=== PATIENT | female | born 1995 | race Caucasian/White ===

== ENCOUNTER 2017-04-09 17:52 | Emergency (ER) | payer SELFPAY ==
--- NOTE | 2017-04-09 18:44 | NUR ---
PATIENT LEFT WITHOUT BEING SEEN BY DR. CARR. NO FURTHER CARE PROVIDED FOR PATIENT.
== END 2017-04-09 18:44 | disposition left against medical advice (07) ==
LOC: MED 17:52
DX: R10.9 Unspecified abdominal pain (principal); Z53.21 Procedure and treatment not carried out due to patient leaving prior to being seen by health care provider

== ENCOUNTER 2017-09-01 23:27 | Emergency (ER) | payer OTHER ==
[~2017-09-01] VITALS: Ht 152.4 cm; Wt 79.4 kg
[2017-09-01 23:33] VITALS: BP 118/82
--- NOTE | 2017-09-01 23:42 | NUR ---
PT TAKEN TO BED 1
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
--- NOTE | 2017-09-02 00:37 | NUR ---
Danii munoz in [facility], [place] - 09/02/17 at [address] Bernal evaluating patient at bedside.
--- NOTE | 2017-09-02 00:47 | NUR ---
Dr. Bernal evaluating patient at bedside.
[2017-09-02 01:37] VITALS: BP 118/82
--- NOTE | 2017-09-02 01:37 | NUR ---
Patient discharged with v/s stable. Written and verbal after care instructions given and explained. Patient alert, oriented and verbalized understanding of instructions. Ambulatory with steady gait. All questions addressed prior to discharge. ID band removed. Patient advised to follow up with PMD. Rx of FLEXERIL 10 MG, NORCO 5/325 MG given. Patient educated on indication of medication including possible reaction and side effects. Opportunity to ask questions provided and answered.
== END 2017-09-02 01:37 | disposition home or self-care (01) ==
LOC: MED 23:27
DX: M25.551 Pain in right hip (principal); R10.13 Epigastric pain
CPT/HCPCS: 73502; 99284

== ENCOUNTER 2019-03-30 12:28 | Emergency (ER) | payer SELFPAY ==
[~2019-03-30] VITALS: Ht 162.6 cm; Wt 100.0 kg
--- NOTE | 2019-03-30 12:35 | NUR ---
PATIENT AMBULATED TO BED 6 AT THIS TIME.
[2019-03-30 12:49] VITALS: BP 127/74
--- NOTE | 2019-03-30 13:10 | NUR ---
pt bib self c/o vaginal pain x4 days. pt reports thick white discharge with fowel odor. Deneis n/v/d or fever. No painful urination, increased frequency, or odor to urine. PT DENIES N/V/D; SKIN IS INTACT, PINK/WARM/DRY; AAOX4, PERRL, WITH EVEN AND STEADY GAIT; LUNGS CLEAR BL, BREATHING UNLABORED; HR EVEN AND REGULAR, BL PERIPHERAL PULSES PRESENT; BS ACTIVE X4, NO TENDERNESS TO PALPATION. PT DENIES ANY FEVER, CP, SOB, OR COUGH AT THIS TIME; PT STATES 5/10 PAIN AT THIS TIME; VSS; PATIENT POSITIONED FOR COMFORT; HOB ELEVATED; BEDRAILS UP X2; BED DOWN.
[2019-03-30] MEDS ORDERED: LEVOFLOXACIN 500 MG TAB PO ONE (14:45)
[2019-03-30] MEDS ORDERED: cefTRIAXone 1,000 MG in LIDOCAINE 1% ***ER ONLY *** 2.1 ML IM ONE (14:45)
[2019-03-30] MEDS ORDERED: hydrOXYzine HCL 25 MG TAB PO ONE (14:45)
[2019-03-30] MEDS ORDERED: cefTRIAXone 1,000 MG VIAL ONE (15:03)
[2019-03-30] MEDS ORDERED: LIDOCAINE MPF 1% - 5 mL VIAL 5 ML ONE (15:04)
[2019-03-30 15:32] VITALS: BP 127/74
[2019-03-30 15:49] LABS: BARBITURATE, URINE NEG. ng/ml (NEG <=200); BENZODIAZEPINE, URINE NEG. ng/mL (NEG <=200); CANNABINOID, URINE NEG. ng/mL (NEG <=50); COCAINE, URINE POS. ng/mL (NEG <=300); OPIATE, URINE NEG. ng/mL (NEG <=2000); PHENCYCLIDINE SCREEN,URINE NEG. ng/mL (NEG <=25)
[2019-03-30 15:52] LABS: APPEARANCE,URINE CLEAR (CLEAR); BILIRUBIN,URINE NEGATIVE (NEGATIVE); BLOOD, URINE NEGATIVE (NEGATIVE); COLOR,URINE YELLOW (YELLOW); LEUKOCYTE ESTERASE ,URINE NEGATIVE (NEGATIVE); NITRITE, URINE NEGATIVE (NEGATIVE); PH,URINE 6.5 (5.0-9.0); UGLUCOSE NEGATIVE (NEGATIVE)
== END 2019-03-30 15:32 | disposition home or self-care (01) ==
LOC: MED 12:28
DX: N76.0 Acute vaginitis (principal); Z86.19 Personal history of other infectious and parasitic diseases
CPT/HCPCS: 36415; 80305; 81003; 81025; 96372; 99283; J0696; J2001; 87491

== ENCOUNTER 2019-09-03 18:33 | Emergency (ER) | payer OTHER ==
[~2019-09-03] VITALS: Ht 154.9 cm; Wt 98.0 kg
[2019-09-03 18:42] VITALS: BP 111/71
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
--- NOTE | 2019-09-03 19:08 | NUR ---
REPORT GIVEN TO KEVIN JAUREGUI
[2019-09-03] MEDS ORDERED: DEXAMETHASONE 10 MG/ML VIAL IM ONE (19:10)
[2019-09-03 19:21] VITALS: BP 111/71
--- NOTE | 2019-09-03 19:21 | NUR ---
PT DISCHARGED WITH PAPERWORK. RX MOTRIN AND PROMETHAZINE. EDUCATED PT REGARDING MEDICATIONS AND S/E. EDUCATED PT REGARDING D/C DIAGNOSIS AND INSTRUCTIONS. PT VERBALIZED UNDERSTANDING OF TEACHING. TOLD PT TO FOLLOW UP WITH PCP AND WHEN TO RETURN TO ED. PT AT STABLE CONDITION. ALL QUESTIONS ANSWERED.
== END 2019-09-03 19:21 | disposition home or self-care (01) ==
LOC: MED 18:33
DX: J06.9 Acute upper respiratory infection, unspecified (principal)
CPT/HCPCS: 96372; 99283; J1100

== ENCOUNTER 2019-10-21 19:55 | Emergency (ER) | payer OTHER ==
[~2019-10-21] VITALS: Ht 152.4 cm; Wt 85.7 kg
[2019-10-21 20:00] VITALS: BP 139/74
--- NOTE | 2019-10-21 20:03 | NUR ---
TO LOBBY A/W BED AMBULATORY
[2019-10-21 22:32] VITALS: BP 139/74
--- NOTE | 2019-10-21 22:32 | NUR ---
PATIENT LEFT WITHOUT BEING SEEN BY DR. BLAIR. NO FURTHER CARE PROVIDED FOR PATIENT.
--- NOTE | 2019-10-21 22:32 | NUR ---
PT CALLED FROM LOBBY, NO RESPONSE, LWBS
--- NOTE | 2019-10-21 22:35 | NUR ---
PT CALLED FROM LOBBY, NO RESPONSE, LWBS
== END 2019-10-21 22:32 | disposition left against medical advice (07) ==
LOC: MED 19:55
DX: R06.02 Shortness of breath (principal); Z53.21 Procedure and treatment not carried out due to patient leaving prior to being seen by health care provider

== ENCOUNTER 2021-12-19 12:48 | Emergency (ER) | payer OTHER ==
[~2021-12-19] VITALS: Ht 154.9 cm; Wt 93.0 kg
[2021-12-19 12:58] VITALS: BP 126/68
--- NOTE | 2021-12-19 13:19 | NUR ---
26 y/o female, c/o sinus pain/pressure that started last week, pt now states it is radiating to head, throat and bilateral ears. pt also states she has nausea, vomiting, states her mother is also sick with s/s at home. skin is pink/warm/dry. a&o x4 with even and steady gait. lungs clear bl, heart rate even and regular. pt denies dysuria, hematuria, urinary frequency or retention pt denies any fever, cp, sob, or cough at this time. pt states pain is 8/10 at this time. vss. patient positioned for comfort. hob elevated. bed down. ermd made aware of pt. pmh: denies nka med: denies
[2021-12-19] MEDS ORDERED: KETOROLAC 60 MG/2 ML VIAL IM ONE (13:35)
[2021-12-19] MEDS ORDERED: PSEU120T22 PO (13:58)
[2021-12-19] MEDS ORDERED: PRED20TA5 PO (13:58)
[2021-12-19] MEDS ORDERED: IBUP-2213 PO (13:58)
[2021-12-19 14:36] VITALS: BP 126/68
--- NOTE | 2021-12-19 14:38 | NUR ---
Patient discharged with v/s stable. Written and verbal after care instructions given and explained. Patient alert, oriented and verbalized understanding of instructions. Ambulatory with steady gait. All questions addressed prior to discharge. ID band removed. Patient advised to follow up with PMD. Rx of ibuprofen, deltasone, sudafed 12hr (sent) given. Patient educated on indication of medication including possible reaction and side effects. Opportunity to ask questions provided and answered. work note given
== END 2021-12-19 14:38 | disposition home or self-care (01) ==
LOC: MED 12:48
DX: J06.9 Acute upper respiratory infection, unspecified (principal); H92.02 Otalgia, left ear; R09.89 Other specified symptoms and signs involving the circulatory and respiratory systems
CPT/HCPCS: 96372; 99283; J1885

== ENCOUNTER 2022-03-29 12:46 | Emergency (ER) | payer OTHER ==
[~2022-03-29] VITALS: Ht 157.5 cm; Wt 95.3 kg
[~2022-03-29 12:46] MED LIST: IBUP-2213 PO; PRED20TA5 PO; PSEU120T22 PO
[2022-03-29 12:59] VITALS: BP 103/75
[2022-03-29] MEDS ORDERED: ONDANSETRON 4 MG ODT PO ONE (13:30)
[2022-03-29] MEDS ORDERED: IBUPROFEN 800 MG TAB PO ONE (13:30)
--- NOTE | 2022-03-29 14:10 | NUR ---
26 y/o female bib self with c/o migraine headache x today. Patient has 8/10 pain level. Patient has nausea and is a little dizzy. Denies blurry vision. Medical History: Denies NKDA
[2022-03-29] MEDS ORDERED: IBUP-2218 PO (15:20)
[2022-03-29 15:52] VITALS: BP 111/62
--- NOTE | 2022-03-29 15:52 | NUR ---
Patient discharged with v/s stable. Written and verbal after care instructions given. Patient alert, oriented and verbalized understanding of instructions. Ambulatory with steady gait. All questions addressed prior to discharge. ID band removed. Patient advised to follow up with PMD. Rx of Ibuprofen given. Opportunity to ask questions provided and answered. WORK NOTE HANDED TO PATIENT.
--- NOTE | 2022-03-29 15:53 | NUR ---
The patient's care was reviewed and supervised by Yadi Alegria RN.
[2022-03-30] MEDS ORDERED: ACET-8386 PO (13:22)
[2022-03-30] MEDS ORDERED: IBUP-2213 PO (13:22)
[2022-03-30] MEDS ORDERED: OMEP40EC24 PO (13:22)
[2022-03-30] MEDS ORDERED: ONDA8TAB87 PO (13:22)
== END 2022-03-29 15:52 | disposition home or self-care (01) ==
LOC: MED 12:46
DX: G43.909 Migraine, unspecified, not intractable, without status migrainosus (principal); Z20.822 Contact with and (suspected) exposure to COVID-19; R11.2 Nausea with vomiting, unspecified
CPT/HCPCS: 81002; 81025; 87426; 99283; Q0162

== ENCOUNTER 2022-03-30 10:16 | Emergency (ER) | payer OTHER ==
[~2022-03-30] VITALS: Ht 157.5 cm; Wt 97.1 kg
[~2022-03-30 10:16] MED LIST changes: +IBUP-2218 PO
[2022-03-30 10:39] VITALS: BP 108/63
--- NOTE | 2022-03-30 11:09 | NUR ---
WALKED IN C/O ABD PAIN ACCOMPANIED BY NAUSEA AND VOMITING. AFEBRILE. DENIES TRAUMA. DENIES PREG. DENIES URINARY S/SX. VITALS STABLE. AAX4
[2022-03-30] MEDS ORDERED: KETOROLAC 60 MG/2 ML VIAL IM ONE (12:05)
--- NOTE | 2022-03-30 12:10 | NUR ---
Danii munoz in [facility] - 03/30/22 at 1210 by [id number] xr atbedside
--- NOTE | 2022-03-30 12:27 | NUR ---
states pain is unchanged. ermd notified
[2022-03-30] MEDS ORDERED: ALUMINUM HYD/MAG/SIMETHICONE 30 ML UDC ONE (12:30)
[2022-03-30] MEDS ORDERED: DICYCLOMINE HCL LIQUID 20 MG, ALUMINUM HYD/MAG/SIMETHICONE 30 ML, LIDOCAINE VISCOUS 2% ... PO ONE ×3 (12:30)
[2022-03-30] MEDS ORDERED: DICYCLOMINE HCL LIQUID 10 MG/5 ML UDC ONE (12:30)
[2022-03-30 12:38] VITALS: BP 124/63
[2022-03-30] MEDS ORDERED: ONDA8TAB87 PO (13:22)
[2022-03-30] MEDS ORDERED: ACET-8386 PO (13:22)
[2022-03-30] MEDS ORDERED: IBUP-2213 PO (13:22)
[2022-03-30] MEDS ORDERED: OMEP40EC24 PO (13:22)
== END 2022-03-30 13:39 | disposition home or self-care (01) ==
LOC: MED 10:16
DX: R10.30 Lower abdominal pain, unspecified (principal); R11.2 Nausea with vomiting, unspecified; Z79.899 Other long term (current) drug therapy
CPT/HCPCS: 81002; 81025; 96372; 99283; J1885

== ENCOUNTER 2022-10-31 11:22 | Emergency (ER) | payer OTHER ==
[~2022-10-31] VITALS: Ht 154.9 cm; Wt 96.4 kg
[~2022-10-31 11:22] MED LIST changes: +ACET-8905 PO; +OMEP40EC24 PO; +ONDA8TAB87 PO
[2022-10-31 11:23] VITALS: BP 145/63
--- NOTE | 2022-10-31 11:29 | NUR ---
PT AMB TO BED 4.
--- NOTE | 2022-10-31 11:30 | NUR ---
27 Y/O FEMALE BIB SELF, C/O N/ AND ANXIETY FOR 2 DAYS. SKIN IS INTACT, PINK/WARM/DRY; AAOX4, PERRL, WITH EVEN AND STEADY GAIT; LUNGS CLEAR BL, BREATHING UNLABORED; HR EVEN AND REGULAR, BL PERIPHERAL PULSES PRESENT; BS ACTIVE X4, NO TENDERNESS TO PALPATION; PT DENIES ANY FEVER, CP, SOB, OR COUGH AT THIS TIME; PT STATES 0/10 PAIN AT THIS TIME; VSS; PATIENT POSITIONED FOR COMFORT; HOB ELEVATED; BEDRAILS UP X2; BED DOWN. PMH: DENIES NKA MED: DENIES
[2022-10-31] MEDS ORDERED: ATA25 PO (12:00)
[2022-10-31 12:33] VITALS: BP 145/63
--- NOTE | 2022-10-31 12:33 | NUR ---
Patient discharged with v/s stable. Written and verbal after care instructions given and explained. Patient alert, oriented and verbalized understanding of instructions. Ambulatory with steady gait. All questions addressed prior to discharge. ID band removed. Patient advised to follow up with PMD. Rx of hydroxyzine (sent) given. Patient educated on indication of medication including possible reaction and side effects. Opportunity to ask questions provided and answered. work note given
== END 2022-10-31 12:33 | disposition home or self-care (01) ==
LOC: MED 11:22
DX: F41.9 Anxiety disorder, unspecified (principal); R11.2 Nausea with vomiting, unspecified; Z79.899 Other long term (current) drug therapy
CPT/HCPCS: 81025; 99283

== ENCOUNTER 2023-05-17 20:04 | Emergency (ER) | payer OTHER ==
[~2023-05-17] VITALS: Ht 154.9 cm; Wt 99.8 kg
[~2023-05-17 20:04] MED LIST changes: +ATA25 PO
[2023-05-17 20:39] VITALS: BP 113/78; PULSE 75; RESP 18; TEMP 97; O2SAT 98
[2023-05-17] MEDS ORDERED: CYCL-711 PO (21:46)
[2023-05-17] MEDS ORDERED: IBUP-2213 PO (21:46)
[2023-05-17 22:17] VITALS: BP 113/78; PULSE 75; RESP 18; TEMP 97; O2SAT 98
[2023-05-17] MEDS: KETOROLAC 30 MG/ML VIAL IM ONE (22:17)
== END 2023-05-17 22:17 | disposition home or self-care (01) ==
LOC: MED 20:04
DX: S13.4XXA Sprain of ligaments of cervical spine, initial encounter (principal); Z79.899 Other long term (current) drug therapy; X50.9XXA Other and unspecified overexertion or strenuous movements or postures, initial encounter; Y93.89 Activity, other specified; Y92.89 Other specified places as the place of occurrence of the external cause; Y99.0 Civilian activity done for income or pay
CPT/HCPCS: 96372; 99283; J1885

== ENCOUNTER 2024-06-16 22:41 | Emergency (ER) | payer OTHER ==
[~2024-06-16] VITALS: Ht 152.4 cm; Wt 99.8 kg
[~2024-06-16 22:41] MED LIST changes: +CYCL-711 PO
[2024-06-16 22:45] VITALS: BP 142/90; PULSE 100; RESP 18; TEMP 98.2; O2SAT 99
[2024-06-17 00:01] LABS: BASOPHILS % (AUTO) 0.5 % (0.0-2.0); EOSINOPHILS # (AUTO) 0.2 K/uL (0-0.4); EOSINOPHILS % (AUTO) 1.8 % (0.0-4.0); HEMATOCRIT 37.2 % (36-48); HEMOGLOBIN 12.6 g/dL (12.0-16.0); LYMPHOCYTES # (AUTO) 2.7 K/uL (2.5-16.5); LYMPHOCYTES % (AUTO) 28.6 % (20.5-51.1); MEAN CORPUSCULAR HEMOGLOBIN 28 pg (27-31); MEAN CORPUSCULAR HGB CONC 34 g/dL (33-37); MEAN CORPUSCULAR VOLUME 83.4 fL (80-94); MONOCYTES # (AUTO) 0.7 K/uL (0.8-1.0); MONOCYTES % (AUTO) 7.5 % (1.7-9.3); NEUTROPHILS # (AUTO) 5.9 K/uL (1.8-7.7); NEUTROPHILS % (AUTO) 61.6 % (42.2-75.2); PLATELET COUNT (AUTO) 334 K/uL (140-450); RED BLOOD CELL COUNT(AUTO) 4.45 MIL/uL (4.20-5.40); WHITE BLOOD COUNT (AUTO) 9.6 K/uL (4.8-10.8)
[2024-06-17 00:08] LABS: APPEARANCE,URINE CLEAR (CLEAR); BILIRUBIN,URINE NEGATIVE (NEGATIVE); BLOOD, URINE NEGATIVE (NEGATIVE); COLOR,URINE YELLOW (YELLOW); LEUKOCYTE ESTERASE ,URINE NEGATIVE (NEGATIVE); NITRITE, URINE NEGATIVE (NEGATIVE); PROTEIN,URINE NEGATIVE (NEGATIVE); UGLUCOSE NEGATIVE (NEGATIVE); UROBILINOGEN,URINE 0.2 EU/dL (0.2 - 1)
[2024-06-17 00:17] LABS: ANION GAP 13.3 (8-16); CALCIUM 8.9 mg/dL (8.5-10.1); CREATININE 0.6 mg/dL (0.6-1.3); POTASSIUM 4.3 mmol/L (3.5-5.1)
[2024-06-17] MEDS ORDERED: ATI.5 PO (01:57)
[2024-06-17] MEDS: IBUPROFEN 600 MG TAB PO ONE (02:06)
[2024-06-17 02:12] VITALS: BP 110/69; PULSE 84; RESP 18; TEMP 98.2; O2SAT 98
== END 2024-06-17 02:12 | disposition home or self-care (01) ==
LOC: MED 22:41
DX: N83.202 Unspecified ovarian cyst, left side (principal); R11.2 Nausea with vomiting, unspecified; Z76.0 Encounter for issue of repeat prescription; K59.00 Constipation, unspecified; Z79.899 Other long term (current) drug therapy
CPT/HCPCS: 36415; 76856; 80048; 81003; 81025; 85025; 93976; 99284; Q0092